=== PATIENT | male | born 1990 | race Caucasian/White ===

== ENCOUNTER 2024-02-25 15:17 | Inpatient (IN) | payer MEDICAID ==
[~2024-02-25] VITALS: Ht 175.3 cm; Wt 81.4 kg
[2024-02-25 12:54] VITALS: BP 134/76; PULSE 74; TEMP 98.6
[~2024-02-25 15:17] MED LIST: NOCURR
[2024-02-25] MEDS ORDERED: MAG HYDROX/ALUMINUM HYD/SIMETH ES 30 ML SUSPENSION UDCUP PO PRN (17:45)
[2024-02-25] MEDS ORDERED: TUBERCULIN, PURIFIED PROTEIN DERIVATIVE 5 TU/0.1 ML SYRINGE ID ONE (17:45)
[2024-02-25] MEDS ORDERED: LOPERAMIDE HCL 2 MG CAPSULE PO PRN (17:45)
[2024-02-25] MEDS ORDERED: MAGNESIUM HYDROXIDE SUSPENSION 30 ML UDCUP PO PRN (17:45)
[2024-02-25] MEDS ORDERED: PROMETHAZINE HCL 25 MG TABLET PO PRN (17:45)
[2024-02-25] MEDS ORDERED: ACETAMINOPHEN 325 MG TABLET PO PRN (17:45)
[2024-02-25] MEDS ORDERED: GuaiFENesin/D-METHORPHAN [SUGAR-FREE] 200-20MG/10 ML SYRUP UDCUP PO PRN (17:45)
[2024-02-25] MEDS: THIAMINE 100 MG TABLET PO SCH (18:41)
[2024-02-25 21:26] LABS: GLUCOMETER DEV NAME(LOC) POC.BV; POC SARS-COV2 AG, FIA NEGATIVE (NEGATIVE)
[2024-02-25 21:33] VITALS: BP 137/70; PULSE 68; RESP 18; TEMP 97.9; O2SAT 98
[2024-02-25] MEDS: MELATONIN 5 MG TABLET PO SCH (22:00)
[2024-02-25] MEDS: ZOLPIDEM TARTRATE 10 MG TABLET PO PRN (22:00)
[2024-02-25] MEDS: LORazepam 2 MG TABLET PO PRN (22:00)
[2024-02-25] MEDS: OLANZapine 5 MG RAPDIS TABLET PO SCH (22:00)
[2024-02-26] MEDS ORDERED: INFLUENZA VIRUS VACCINE TVS (6MO+) 2024-25/PF 45 MCG/0.5 ML SYRINGE IM. ONE (01:15)
[2024-02-26] MEDS: FOLIC ACID 1 MG TABLET PO SCH (08:09)
[2024-02-26] MEDS: OLANZapine 5 MG RAPDIS TABLET PO PRN (08:10)
[2024-02-26] MEDS: MULTIVITAMINS WITH MINERALS, THERAPEUTIC TABLET PO SCH (08:10)
[2024-02-26] MEDS: NALTREXONE HCL 50 MG TABLET PO SCH (08:10)
[2024-02-26] MEDS: FLUoxetine HCL 20 MG CAPSULE PO SCH (08:10)
[2024-02-26 08:11] VITALS: BP 103/61; PULSE 64; RESP 17; TEMP 98.3; O2SAT 99
[2024-02-26] MEDS ORDERED: PALIPERIDONE PALMITATE 234 MG/1.5 ML SYRINGE IM ONE (09:00)
[2024-02-26 09:18] LABS: BASOPHILS % (AUTO) 0.3 % (0.0-2.0); EOSINOPHILS % (AUTO) 1.9 % (1.0-6.0); HEMATOCRIT 41.9 % (41-53); HEMOGLOBIN 14.5 g/dL (13.5-17.5); LYMPHOCYTES # (AUTO) 1.6 K/uL (1.0-4.8); LYMPHOCYTES % (AUTO) 25.5 % (22.0-44.0); MEAN CORPUSCULAR HEMOGLOBIN 32.9 pg (26.0-34.0); MEAN CORPUSCULAR HGB CONC 34.7 G/dL (31.0-37.0); MEAN CORPUSCULAR VOLUME 95 fL (80-100); MONOCYTES # (AUTO) 0.7 K/uL (0.1-1.0); MONOCYTES % (AUTO) 11.1 % (2.0-9.0); NEUTROPHILS # (AUTO) 3.9 K/uL (1.8-7.7); NEUTROPHILS % (AUTO) 61.2 % (40.0-70.0); PLATELET COUNT (AUTO) 180 K/uL (150-450); RED BLOOD CELL COUNT(AUTO) 4.42 MIL/uL (4.50-5.90); RED CELL DISTRIBUTION WIDTH 12.4 % (11.5-14.5); WHITE BLOOD COUNT (AUTO) 6.4 K/uL (4.5-11.0)
[2024-02-26 09:45] LABS: ALANINE AMINOTRANSFERASE 8 U/L (12-78); ALBUMIN 3.5 g/dL (3.4-5.0); ALKALINE PHOSPHATASE 98 U/L (46-116); ANION GAP 7 mmol/L (8-16); ASPARTATE AMINOTRANSFERASE 9 U/L (15-37); BILIRUBIN,TOTAL 1.1 mg/dL (0.1-1.0); CALCIUM, TOTAL 8.6 mg/dL (8.8-10.5); CARBON DIOXIDE 30 mmol/L (22-29); CHLORIDE 100 mmol/L (98-107); CHOL/HDL RATIO 2.5 (4.2-7.3); CHOLESTEROL 181 mg/dL (131-200); CREATININE 0.94 mg/dL (0.60-1.30); FREE T4 (FREE THYROXINE) 1.02 ng/dL (0.76-1.46); GLOMERULAR FILTR. RATE CALC > 60 mL/min (>60); GLUCOSE,RANDOM 97 mg/dL (70-110); HDL CHOLESTEROL 71 mg/dL (40-60); LDL CHOL (CALC.) 96 mg/dL (0-130); POTASSIUM 3.5 mmol/L (3.5-5.1); SODIUM SERUM 137 mmol/L (136-145); THYROID STIMULATING HORMONE 1.04 uIU/mL (0.36-3.74); TRIGLYCERIDES 71 mg/dL (15-150); UREA NITROGEN, BLOOD 14 mg/dL (7-18)
[2024-02-26 10:05] LABS: HEMOGLOBIN A1C 4.4 % (3.8-5.6)
[2024-02-27 09:28] VITALS: BP 124/77; PULSE 90; RESP 18; TEMP 98; O2SAT 98
[2024-02-28 08:09] VITALS: BP 104/65; PULSE 66; RESP 16; TEMP 97.6; O2SAT 98
[2024-02-28] MEDS: HydrOXYzine PAMOATE 50 MG CAPSULE PO PRN (17:04)
[2024-02-28 21:40] VITALS: BP 133/96; PULSE 63; RESP 16; TEMP 97.3; O2SAT 99
[2024-02-29 08:21] VITALS: BP 102/61; PULSE 72; RESP 15; TEMP 97.6; O2SAT 97
[2024-02-29 20:59] VITALS: BP 110/69; PULSE 74; RESP 16; TEMP 97.7; O2SAT 97
[2024-03-01] MEDS ORDERED: PALIPERIDONE PALMITATE 156 MG/ML SYRINGE IM ONE (09:00)
[2024-03-01 09:04] VITALS: BP_SYST 119; BP_SYST 135; BP_DIAS 63; BP_DIAS 87; PULSE 74; PULSE 91; RESP 17; RESP 18; TEMP 97.5; TEMP 97.7; O2SAT 93; O2SAT 97
[2024-03-01] MEDS: CYPROHEPTADINE HCL 4 MG TABLET PO SCH (16:23)
[2024-03-01] MEDS: MIRTAZAPINE 15 MG TABLET PO SCH (20:07)
[2024-03-01] MEDS: OLANZapine 10 MG RAPDIS TABLET PO SCH (20:08)
[2024-03-01 20:50] VITALS: BP 132/80; PULSE 99; RESP 18; TEMP 98; O2SAT 98
[2024-03-02 08:19] VITALS: BP 116/71; PULSE 96; RESP 17; TEMP 97.8; O2SAT 96
[2024-03-02] MEDS ORDERED: FLUoxetine HCL 20 MG CAPSULE PO SCH (09:00)
[2024-03-02] MEDS: OLANZapine 10 MG RAPDIS TABLET PO SCH (21:06)
[2024-03-02 23:42] VITALS: RESP 16
[2024-03-03 08:25] VITALS: BP 105/60; PULSE 66; RESP 17; TEMP 97.4; O2SAT 98
[2024-03-03 20:15] VITALS: BP 114/75; PULSE 90; RESP 18; TEMP 97.6; O2SAT 97
[2024-03-04 08:10] VITALS: BP 108/66; PULSE 61; RESP 16; TEMP 97.6; O2SAT 97
[2024-03-04 20:00] VITALS: BP 115/65; PULSE 79; RESP 16; TEMP 97.7; O2SAT 99
[2024-03-05 09:24] VITALS: BP 122/69; PULSE 78; RESP 18; TEMP 98; O2SAT 97
[2024-03-05 20:50] VITALS: BP 127/80; PULSE 98; RESP 16; TEMP 97.7; O2SAT 98
[2024-03-06 08:30] VITALS: BP 108/60; PULSE 77; RESP 18; TEMP 97.6; O2SAT 98
[2024-03-06 20:00] VITALS: BP 139/85; PULSE 100; RESP 16; TEMP 98; O2SAT 98
[2024-03-07 08:53] VITALS: BP 105/75; PULSE 93; RESP 17; TEMP 97.8; O2SAT 98
[2024-03-07 20:12] VITALS: BP 132/88; PULSE 94; RESP 18; TEMP 97.5; O2SAT 97
[2024-03-08 08:30] VITALS: BP 133/63; PULSE 81; RESP 16; TEMP 98.5; O2SAT 96
[2024-03-08 08:43] LABS: APPEARANCE,URINE CLEAR (CLEAR); BILIRUBIN,URINE NEGATIVE (NEGATIVE); COLOR,URINE LIGHT YELLOW (YELLOW); GLUCOSE, URINE (UA) NEGATIVE (NEGATIVE); KETONES,URINE NEGATIVE (NEGATIVE); LEUKOCYTE ESTERASE ,URINE NEGATIVE (NEGATIVE); NITRATE,URINE NEGATIVE (NEGATIVE); OCCULT BLOOD,URINE NEGATIVE (NEGATIVE); PH,URINE 6.5 (5.0-8.0); PH,URINE DRUG SCREEN 6.5 (5.0-8.0); PROTEIN,URINE NEGATIVE (NEGATIVE); SPECIFIC GRAVITIY, URINE 1.007 (1.003-1.030); UROBILINOGEN,URINE <=1.0 mg/dL (<=1.0)
[2024-03-08 08:45] LABS: ALCOHOL, URINE DRUG SCREEN NEGATIVE (NEGATIVE); AMPHET/METH SCREEN,URINE NEGATIVE (NEGATIVE); BARBITURATE SCREEN, URINE NEGATIVE (NEGATIVE); BENZODIAZEPINES SCREEN,URINE NEGATIVE (NEGATIVE); CANNABINOID SCREEN,URINE NEGATIVE (NEGATIVE); COCAINE SCREEN,URINE NEGATIVE (NEGATIVE); METHADONE SCREEN, URINE NEGATIVE (NEGATIVE); OPIATE SCREEN,URINE NEGATIVE (NEGATIVE); PHENCYCLIDINE SCREEN,URINE NEGATIVE (NEGATIVE)
[2024-03-08 20:43] VITALS: BP 122/74; PULSE 91; RESP 18; TEMP 97.9; O2SAT 97
[2024-03-09 08:39] VITALS: BP 107/72; PULSE 89; RESP 15; TEMP 97.8; O2SAT 96
[2024-03-09 23:18] VITALS: BP 127/74; PULSE 91; RESP 18; TEMP 97; O2SAT 98
[2024-03-10 08:00] VITALS: BP 113/81; PULSE 93; RESP 16; TEMP 98; O2SAT 98
[2024-03-10 20:33] VITALS: RESP 16
[2024-03-10] MEDS: OLANZapine 10 MG RAPDIS TABLET PO SCH (20:36)
[2024-03-11 08:19] VITALS: BP 112/65; PULSE 78; RESP 17; TEMP 97.7; O2SAT 95
[2024-03-11 20:00] VITALS: BP 106/63; PULSE 75; RESP 16; TEMP 97.4; O2SAT 98
[2024-03-12 09:44] VITALS: BP 100/62; PULSE 70; RESP 17; TEMP 97.7; O2SAT 97
[2024-03-12 20:52] VITALS: BP 133/79; PULSE 73; RESP 18; TEMP 98.1; O2SAT 97
[2024-03-13 08:03] VITALS: BP 136/82; PULSE 74; RESP 16; TEMP 98.3; O2SAT 98
[2024-03-13 20:36] VITALS: BP 127/85; PULSE 100; RESP 18; TEMP 97.3; O2SAT 99
[2024-03-14 10:47] VITALS: BP 128/70; PULSE 108; RESP 18; TEMP 97.8; O2SAT 99
[2024-03-14] MEDS ORDERED: PALI156D IM (20:02)
[2024-03-14 20:56] VITALS: BP 140/84; PULSE 82; RESP 17; TEMP 97.4; O2SAT 95
== END 2024-03-15 09:40 | disposition home or self-care (01) | DRG 750 ==
LOC: B3A 18:30 → B2S 03-14 14:40
PROVIDERS: ADMIT Psychiatry & Neurology Psychiatry; ATTEND Psychiatry & Neurology Psychiatry
PROC: GZHZZZZ Group Psychotherapy (ICD-10-PCS; principal; 2024-02-26)
PROC: GZ58ZZZ Individual Psychotherapy, Cognitive-Behavioral (ICD-10-PCS; 2024-02-26)
DX: F25.9 Schizoaffective disorder, unspecified (principal); F17.200 Nicotine dependence, unspecified, uncomplicated; F60.0 Paranoid personality disorder; F32.A Depression, unspecified; J44.9 Chronic obstructive pulmonary disease, unspecified; Z20.822 Contact with and (suspected) exposure to COVID-19; Z65.3 Problems related to other legal circumstances; Z55.9 Problems related to education and literacy, unspecified; Z59.9 Problem related to housing and economic circumstances, unspecified; Z63.9 Problem related to primary support group, unspecified
CPT/HCPCS: 80053; 80061; 80307; 81003; 83036; 84439; 84443; 85025; 86592

== ENCOUNTER → 2024-07-05 | Emergency (ER) | payer MEDICAID, OTHER ==
[~2024-07-05] VITALS: Ht 172.7 cm; Wt 85.5 kg
[~2024-07-05] MED LIST changes: +ALBU18HF12 IH; +BENZ1LOZ50 PO; +CLON0.1T2 PO; +HALO5TAB23 PO; +LOPE-232 PO; +LORA2TAB18 PO; -NOCURR; +OMEP-148 PO; +RISP-31 PO; +ZOLP-162 PO
[2024-07-05 12:33] VITALS: TEMP 98.7
[2024-07-05] MEDS: ACETAMINOPHEN 500 MG TABLET PO ONE (12:41)
[2024-07-05 12:59] VITALS: BP 148/91; PULSE 93; RESP 18; O2SAT 96
== END | disposition home or self-care (01) ==
LOC: EMS 11:34
DX: S09.8XXA Other specified injuries of head, initial encounter (principal); F20.9 Schizophrenia, unspecified; F15.90 Other stimulant use, unspecified, uncomplicated; Z79.899 Other long term (current) drug therapy; X58.XXXA Exposure to other specified factors, initial encounter; Y93.89 Activity, other specified; Y92.89 Other specified places as the place of occurrence of the external cause; Y99.8 Other external cause status
CPT/HCPCS: 70450; 99284

== ENCOUNTER 2025-01-06 22:17 | Inpatient (IN) | payer MEDICAID ==
[~2025-01-06] VITALS: Ht 175.3 cm; Wt 82.1 kg
[~2025-01-06 22:17] MED LIST changes: -ALBU18HF12 IH; -BENZ1LOZ50 PO; -CLON0.1T2 PO; -HALO5TAB23 PO; -LOPE-232 PO; -LORA2TAB18 PO; -OMEP-148 PO; -RISP-31 PO; +RISP100S SQ; -ZOLP-162 PO
[2025-01-06 23:53] VITALS: BP 134/92; PULSE 54; RESP 18; TEMP 98.5; O2SAT 100
[2025-01-07 00:08] VITALS: BP 134/92; PULSE 54; RESP 18; TEMP 98.5; O2SAT 100
[2025-01-07] MEDS ORDERED: INFLUENZA VIRUS VACCINE TVS (6MO+) 2025-26/PF 45 MCG/0.5 ML SYRINGE IM. ONE (00:30)
[2025-01-07] MEDS ORDERED: OMEPRAZOLE 20 MG CAPSULE PO PRN (07:30)
[2025-01-07] MEDS ORDERED: ALBUTEROL SULFATE HFA 90 MCG/PUFF 8 GM INHALER IH PRN (07:30)
[2025-01-07] MEDS ORDERED: ONDANSETRON 4 MG TABLET PO PRN (07:30)
[2025-01-07] MEDS ORDERED: NICOTINE POLACRILEX 4 MG LOZENGE PO PRN (07:30)
[2025-01-07] MEDS ORDERED: PETROLATUM,WHITE 28 GM JELLY TP PRN (07:30)
[2025-01-07] MEDS ORDERED: ACETAMINOPHEN 325 MG TABLET PO PRN (07:30)
[2025-01-07] MEDS ORDERED: DOCUSATE SODIUM 100 MG CAPSULE PO PRN (07:30)
[2025-01-07] MEDS ORDERED: MAGNESIUM HYDROXIDE SUSPENSION 30 ML UDCUP PO PRN (07:30)
[2025-01-07] MEDS ORDERED: BACITRACIN 28 GM OINTMENT TP PRN (07:30)
[2025-01-07] MEDS ORDERED: IBUPROFEN 600 MG TABLET PO PRN (07:30)
[2025-01-07] MEDS ORDERED: LOPERAMIDE HCL 2 MG CAPSULE PO PRN (07:30)
[2025-01-07] MEDS ORDERED: BENZOCAINE/MENTHOL [CEPACOL] LOZENGE PO PRN (07:30)
[2025-01-07 08:27] VITALS: BP 117/75; PULSE 75; RESP 17; TEMP 98.2; O2SAT 99
[2025-01-07 08:55] LABS: PLATELET COUNT (AUTO) 187 K/uL (150-450); RED BLOOD CELL COUNT(AUTO) 4.38 MIL/uL (4.50-5.90); RED CELL DISTRIBUTION WIDTH 13.7 % (11.5-14.5); WHITE BLOOD COUNT (AUTO) 6.2 K/uL (4.5-11.0)
[2025-01-07 09:30] LABS: ASPARTATE AMINOTRANSFERASE 14 U/L (15-37); CALCIUM, TOTAL 8.6 mg/dL (8.8-10.5); CREATININE 0.58 mg/dL (0.60-1.30); GLOMERULAR FILTR. RATE CALC > 60 mL/min (>60); GLUCOSE,RANDOM 83 mg/dL (70-110); SODIUM SERUM 140 mmol/L (136-145); TOTAL PROTEIN, SERUM 7.0 g/dL (6.4-8.2); UREA NITROGEN, BLOOD 13 mg/dL (7-18)
[2025-01-07 20:38] VITALS: RESP 17
[2025-01-08 08:19] VITALS: BP 105/60; PULSE 62; RESP 17; TEMP 97.9; O2SAT 97
[2025-01-08] MEDS: POTASSIUM CHLORIDE 20 MEQ ER TABLET PO ONE (09:18)
[2025-01-08 10:15] LABS: APPEARANCE,URINE TURBID (CLEAR); GLUCOSE, URINE (UA) NEGATIVE (NEGATIVE); LEUKOCYTE ESTERASE ,URINE NEGATIVE (NEGATIVE); NITRATE,URINE NEGATIVE (NEGATIVE); OCCULT BLOOD,URINE NEGATIVE (NEGATIVE); PH,URINE DRUG SCREEN 6.0 (5.0-8.0); SPECIFIC GRAVITIY, URINE 1.034 (1.003-1.030)
[2025-01-08 10:21] LABS: ALCOHOL, URINE DRUG SCREEN NEGATIVE (NEGATIVE); AMPHET/METH SCREEN,URINE NEGATIVE (NEGATIVE); BARBITURATE SCREEN, URINE NEGATIVE (NEGATIVE); CANNABINOID SCREEN,URINE POSITIVE (NEGATIVE); COCAINE SCREEN,URINE NEGATIVE (NEGATIVE); METHADONE SCREEN, URINE NEGATIVE (NEGATIVE)
[2025-01-08 20:29] VITALS: BP 124/83; PULSE 94; RESP 18; TEMP 98.5; O2SAT 98
[2025-01-09 08:28] VITALS: BP 100/61; PULSE 60; RESP 17; TEMP 98.2; O2SAT 97
[2025-01-09 20:49] VITALS: BP 120/83; PULSE 91; RESP 18; TEMP 97.9; O2SAT 100
[2025-01-10 08:26] VITALS: BP 104/61; PULSE 69; RESP 18; TEMP 98.6; O2SAT 96
[2025-01-10] MEDS: ZOLPIDEM TARTRATE 10 MG TABLET PO PRN (20:12)
[2025-01-10 20:21] VITALS: BP 125/79; PULSE 84; RESP 18; TEMP 97.7; O2SAT 100
[2025-01-11 08:53] VITALS: BP_SYST 130; BP_SYST 180; BP_DIAS 72; PULSE 70; RESP 18; TEMP 99; O2SAT 99
[2025-01-11 14:32] VITALS: BP 117/83
[2025-01-11] MEDS ORDERED: LORazepam 2 MG/ML VIAL ONE (15:06)
[2025-01-11] MEDS: LORazepam 2 MG/ML VIAL IM ONE (15:28)
[2025-01-11 20:07] VITALS: BP 123/76; PULSE 68; RESP 18; TEMP 98; O2SAT 99
[2025-01-12 08:22] VITALS: BP 103/63; PULSE 75; RESP 17; TEMP 98.4; O2SAT 99
[2025-01-12 20:45] VITALS: BP 110/68; PULSE 72; RESP 16; TEMP 97.2; O2SAT 99
[2025-01-13 08:13] VITALS: BP 119/86; PULSE 98; RESP 16; TEMP 98.1; O2SAT 99
[2025-01-13 20:15] VITALS: BP 126/83; PULSE 76; RESP 17; TEMP 98.4; O2SAT 100
[2025-01-14 08:29] VITALS: BP 109/67; PULSE 72; RESP 18; TEMP 97.7; O2SAT 98
[2025-01-14] MEDS: DIVALPROEX SODIUM 500 MG DR TABLET PO SCH (20:19)
[2025-01-14 20:32] VITALS: BP 153/86; PULSE 92; RESP 18; TEMP 98.3; O2SAT 97
[2025-01-15 08:02] VITALS: BP 117/81; PULSE 81; RESP 18; TEMP 97.8; O2SAT 95
[2025-01-15 20:13] VITALS: BP 125/77; PULSE 78; RESP 18; TEMP 98.5; O2SAT 98
[2025-01-16 08:04] VITALS: BP 105/80; PULSE 86; RESP 18; TEMP 98; O2SAT 100
[2025-01-16] MEDS: MAG HYDROX/ALUMINUM HYD/SIMETH ES 30 ML SUSPENSION UDCUP PO PRN (12:57)
[2025-01-16 16:10] VITALS: BP 132/92; PULSE 105; RESP 16; TEMP 97.7; O2SAT 95
[2025-01-16 20:14] VITALS: BP 121/75; PULSE 94; RESP 16; TEMP 98.1; O2SAT 100
[2025-01-17 08:42] VITALS: BP 105/64; PULSE 96; RESP 18; TEMP 98.6; O2SAT 97
[2025-01-17 20:02] VITALS: BP 110/70; PULSE 84; RESP 18; TEMP 98.5; O2SAT 98
[2025-01-18 08:43] VITALS: BP 116/89; RESP 16; TEMP 97.9; O2SAT 97
[2025-01-18 20:07] VITALS: BP 128/87; PULSE 85; RESP 17; TEMP 97.9; O2SAT 98
[2025-01-19 08:06] VITALS: BP 117/80; RESP 16; TEMP 98.3; O2SAT 98
[2025-01-19 11:32] VITALS: O2SAT 16
[2025-01-19 20:02] VITALS: BP 123/80; PULSE 88; RESP 17; TEMP 98.1; O2SAT 98
[2025-01-20 08:01] VITALS: BP 121/69; PULSE 77; RESP 16; TEMP 97.9; O2SAT 99
[2025-01-20 20:16] VITALS: BP 110/62; PULSE 85; RESP 16; TEMP 98.2; O2SAT 98
[2025-01-21 08:03] VITALS: BP 123/89; PULSE 92; RESP 17; TEMP 97.9; O2SAT 98
[2025-01-21 20:10] VITALS: BP 125/74; PULSE 88; RESP 17; TEMP 98.1; O2SAT 98
[2025-01-22] VITALS (7 sets, daily range): BP systolic 94–131; BP diastolic 56–98; PULSE 73–99; RESP 16–18; TEMP 97.4–98.4; O2SAT 96–100
[2025-01-22] MEDS: LORazepam 2 MG/ML VIAL IM ONE (11:41)
[2025-01-23 08:03] VITALS: BP 113/77; PULSE 103; RESP 17; TEMP 98.2; O2SAT 97
[2025-01-23 20:04] VITALS: BP 119/66; PULSE 103; RESP 18; TEMP 97.9
[2025-01-24] VITALS (8 sets, daily range): BP systolic 117–138; BP diastolic 72–82; PULSE 67–81; RESP 16–18; TEMP 97.9–98.1; O2SAT 98–99
[2025-01-24] MEDS ORDERED: LORazepam 2 MG/ML VIAL ONE (12:53)
[2025-01-24] MEDS: LORazepam 2 MG/ML VIAL IM ONE (13:06)
[2025-01-25 08:02] VITALS: BP 102/63; PULSE 90; RESP 16; TEMP 97.9; O2SAT 98
[2025-01-25] MEDS ORDERED: LORazepam 2 MG/ML VIAL ONE (13:50)
[2025-01-25] MEDS: LORazepam 2 MG/ML VIAL IM ONE (14:46)
[2025-01-25 20:29] VITALS: BP 127/77; PULSE 87; RESP 18; TEMP 98.1; O2SAT 99
[2025-01-26 08:14] VITALS: RESP 17
[2025-01-26 10:52] VITALS: BP 108/71; PULSE 98; RESP 17; TEMP 98; O2SAT 96
[2025-01-26 20:11] VITALS: BP 130/71; PULSE 86; RESP 18; TEMP 97.9; O2SAT 97
[2025-01-27 08:34] VITALS: BP 114/81; RESP 17; TEMP 98.6; O2SAT 100
[2025-01-27] MEDS ORDERED: LORazepam 2 MG/ML VIAL ONE (11:26)
[2025-01-27] MEDS: LORazepam 2 MG/ML VIAL IM ONE (11:35)
[2025-01-27 20:21] VITALS: RESP 18
[2025-01-28 09:33] VITALS: BP 107/61; PULSE 66; RESP 17; TEMP 98.5; O2SAT 97
[2025-01-28] MEDS ORDERED: LORazepam 2 MG/ML VIAL ONE (13:15)
[2025-01-28] MEDS: LORazepam 2 MG/ML VIAL IM ONE (13:41)
[2025-01-28 20:12] VITALS: BP 102/61; PULSE 65; RESP 18; TEMP 98.9; O2SAT 100
[2025-01-29 08:15] VITALS: BP 105/62; PULSE 73; RESP 19; TEMP 98.1; O2SAT 98
[2025-01-29 20:03] VITALS: BP 130/91; PULSE 100; RESP 18; TEMP 97.5; O2SAT 98
[2025-01-29] MEDS ORDERED: LORazepam 2 MG/ML VIAL ONE (23:24)
[2025-01-29] MEDS: LORazepam 2 MG/ML VIAL IM ONE (23:51)
[2025-01-30 08:15] VITALS: BP 97/63; PULSE 67; RESP 16; TEMP 98; O2SAT 98
[2025-01-30 20:10] VITALS: BP 121/78; PULSE 72; RESP 18; TEMP 97.5; O2SAT 98
[2025-01-31 08:28] VITALS: BP 111/65; PULSE 96; RESP 17; TEMP 97.3; O2SAT 98
[2025-01-31] MEDS ORDERED: DIVA-112 PO (10:26)
[2025-01-31] MEDS ORDERED: RISP3TAB77 PO (10:26)
== END 2025-01-31 13:54 | disposition home or self-care (01) | DRG 761 ==
LOC: B2S 22:44 → B3A 01-11 15:50
PROVIDERS: ADMIT Psychiatry & Neurology Psychiatry; ATTEND Psychiatry & Neurology Psychiatry
PROC: GZ58ZZZ Individual Psychotherapy, Cognitive-Behavioral (ICD-10-PCS; 2025-01-07)
PROC: GZ56ZZZ Individual Psychotherapy, Supportive (ICD-10-PCS; 2025-01-07)
PROC: GZHZZZZ Group Psychotherapy (ICD-10-PCS; principal; 2025-01-10)
DX: F25.1 Schizoaffective disorder, depressive type (principal); R45.851 Suicidal ideations; F12.10 Cannabis abuse, uncomplicated; I10 Essential (primary) hypertension; F15.10 Other stimulant abuse, uncomplicated; F41.9 Anxiety disorder, unspecified; G47.00 Insomnia, unspecified; F10.90 Alcohol use, unspecified, uncomplicated; K59.00 Constipation, unspecified; Z78.1 Physical restraint status; Z79.899 Other long term (current) drug therapy; Z91.199 Patient's noncompliance with other medical treatment and regimen due to unspecified reason; Z91.52 Personal history of nonsuicidal self-harm; Z72.0 Tobacco use; Z91.018 Allergy to other foods
CPT/HCPCS: 80053; 80164; 80307; 81003; 83036; 84132; 84439; 84443; 85025; J1200; J1630; J2060; J3230

== ENCOUNTER 2025-01-22 13:12 | Emergency (ER) | payer MEDICAID, OTHER ==
[~2025-01-22] VITALS: Ht 175.3 cm; Wt 81.8 kg
[2025-01-22 13:33] VITALS: TEMP 98.5
[2025-01-22] MEDS: ACETAMINOPHEN 500 MG TABLET PO ONE (13:45)
[2025-01-22 17:25] VITALS: BP 127/83; PULSE 98; RESP 19; O2SAT 99
== END 2025-01-22 17:37 ==
LOC: EMS 13:14
DX: S09.90XA Unspecified injury of head, initial encounter (principal); F20.9 Schizophrenia, unspecified; F31.9 Bipolar disorder, unspecified; F17.210 Nicotine dependence, cigarettes, uncomplicated; F12.90 Cannabis use, unspecified, uncomplicated; F15.90 Other stimulant use, unspecified, uncomplicated; W22.01XA Walked into wall, initial encounter; Y93.89 Activity, other specified; Y92.89 Other specified places as the place of occurrence of the external cause; Y99.8 Other external cause status
CPT/HCPCS: 70450; 99284